=== PATIENT | female | born 1945 | race Hispanic/Latino ===

== ENCOUNTER → 2020-04-27 | Outpatient (CLI) | payer MEDICARE ==
--- NOTE | 2020-05-21 13:54 | MAM ---
EXAM DESCRIPTION: 3D Screening BILATERAL : Digital Mammography. CLINICAL HISTORY: 74 years Female ANNUAL SCREENING . No complaints. Female sibling with breast cancer and remote family history of breast cancer. Menarche age 13. No childbirth. Menopause age 35. No HRT. Lifetime risk of developing breast cancer (Tyrer-Cuzick model)(%): 11.5. COMPARISON: Baseline study at this facility. No prior reports available. TECHNIQUE: Bilateral CC and MLO projection full-field images, digital tomosynthesis mammographic technique. Bilateral digital 2-D full-field MLO images. and CC images. CAD available for 2-D images. FINDINGS: The breast parenchymal density pattern is: Scattered areas of fibroglandular density. Birads 2 Findings. Bilateral fibroglandular tissues also appear slightly nodular. Scattered microcalcifications more prevalent in the dense tissues of the left breast. Bilateral solitary calcifications. More coarse calcifications in the right breast. Axillary nodes. Focal asymmetry anterior to mid left breast 4 cm from the nipple at 3:00-3:30 position. Adjacent calcifications. No focal, stellate mass or density, focal asymmetry , and no suspicious microcalcifications right breast. IMPRESSION: BI-RADS CATEGORY: 0 - INCOMPLETE- Need additional imaging evaluation. RECOMMENDATIONS: FOLLOW-UP: Recall for additional imaging: Directed ultrasound left breast in the region of interest.. Written communication concerning the IMPRESSION and Follow-up, will be mailed to the patient and referring health care provider. Electronically signed by: Demarcus Alaniz MD 04/30/2020 11:02 AM [facility]
== END ==
LOC: MAMMO 08:00
PROVIDERS: ATTEND General Practice
DX: Z12.31 Encounter for screening mammogram for malignant neoplasm of breast (principal)

== ENCOUNTER → 2020-05-14 | Outpatient (CLI) | payer MEDICARE ==
--- NOTE | 2020-05-22 16:48 | US ---
EXAM DESCRIPTION: Breast,Left: Ultrasound. CLINICAL HISTORY: 74 yearsFemaleABN MAMMO. Focal asymmetry anterior mid left breast 4 cm from the nipple at 3:00-3:30 position. COMPARISON: Bilateral screening digital rest tomosynthesis April 27. TECHNIQUE: Transcutaneous scanning of the left breast utilizing funk-scale and Doppler modes. Scanning performed by the model technician only. FINDINGS: Scanning left breast 4 cm from the nipple at 3:00. Mostly fibroglandular elements. 2. Hypoechoic nodular objects approximately 2 mm in diameter, contained in one large circumscribed object with intermediate echoes. The larger structure measures 6.8 x 3.2 x 4.6 mm and not vascular. Wider than tall orientation. Mixed posterior acoustic signal. Most likely a lymph node. IMPRESSION: BI-RADS CATEGORY: 3 - PROBABLY BENIGN. RECOMMENDATIONS: FOLLOW-UP: Short interval (6-month) diagnostic digital breast tomosynthesis on the left with directed left breast ultrasound.. Written communication explaining the IMPRESSION and FOLLOW-UP will be mailed to the patient and referring care provider. Electronically signed by: Demarcus Alaniz MD 05/22/2020 4:47 PM [facility]
== END ==
LOC: US 10:58
PROVIDERS: ATTEND General Practice
DX: R92.8 Other abnormal and inconclusive findings on diagnostic imaging of breast (principal)